=== PATIENT | female | born 1995 | race Caucasian/White ===

== ENCOUNTER 2016-04-18 09:38 | Emergency (ER) | payer OTHER ==
[~2016-04-18] VITALS: Ht 167.6 cm; Wt 56.7 kg
[2016-04-18 09:38] VITALS: BP 123/84; PULSE 89; RESP 19; TEMP 97.2; O2SAT 96
[2016-04-18] MEDS ORDERED: KETOROLAC TROMETHAMINE 30 MG VIAL IM ONE (11:30)
[2016-04-18 12:00] VITALS: BP 132/80; PULSE 84; RESP 19; TEMP 97.2; O2SAT 98
== END 2016-04-18 12:00 | disposition home or self-care (01) ==
LOC: SED 09:38
DX: S13.4XXA Sprain of ligaments of cervical spine, initial encounter (principal); S20.219A Contusion of unspecified front wall of thorax, initial encounter; V43.92XA Unspecified car occupant injured in collision with other type car in traffic accident, initial encounter; Y93.89 Activity, other specified; Y92.89 Other specified places as the place of occurrence of the external cause; Y99.8 Other external cause status
CPT/HCPCS: 71010; 72040; 81025; 96372; 99284; J1885